=== PATIENT | male | born 1950 | race Caucasian/White ===

== ENCOUNTER 2021-07-11 06:25 | Inpatient (IN) ==
[2021-07-11] MEDS ORDERED: NITROGLYCERIN DRIP 50 MG/250 ML BOTTLE IV ONE (06:41)
[2021-07-11] MEDS ORDERED: HEPARIN/NACL 0.9% 2 UNITS/ML 1,000 UNIT/500 ML BAG IV ONE (06:41)
[2021-07-11] MEDS ORDERED: PHENYLEPHRINE DRIP 20 MG/250 ML PREMIX IV ONE (06:42)
[2021-07-11] MEDS ORDERED: DEXAMETHASONE 4 MG/1 ML VIAL ONE ×2 (07:05→07:12)
[2021-07-11] MEDS ORDERED: HEPARIN 10,000 UNIT/10 ML VIAL ONE (07:05)
[2021-07-11] MEDS ORDERED: ETOMIDATE 40 MG/20 ML VIAL IV ONE (07:05)
[2021-07-11] MEDS ORDERED: SEVOFLURANE 1 UNIT/15 MINUTE INH ONE ×2 (07:05→10:05)
[2021-07-11] MEDS ORDERED: LACTATED RINGERS 1,000 ML IV ONE (07:05)
[2021-07-11] MEDS ORDERED: ROCURONIUM 50 MG/5 ML VIAL IV ONE (07:05)
[2021-07-11] MEDS ORDERED: SODIUM CHLORIDE 0.9% 1,000 ML IV ONE (07:05)
[2021-07-11] MEDS ORDERED: LIDOCAINE 2% 5 ML VIAL ONE (07:05)
[2021-07-11] MEDS ORDERED: ONDANSETRON 4 MG/2 ML VIAL ONE (07:05)
[2021-07-11] MEDS ORDERED: propofoL 200 MG/20 ML VIAL IV ONE (07:05)
[2021-07-11] MEDS ORDERED: fentaNYL 100 MCG/2 ML VIAL ONE (07:05)
[2021-07-11] MEDS ORDERED: ROPIVACAINE 0.5% 30 ML VIAL ONE (07:12)
[2021-07-11] MEDS ORDERED: LACTATED RINGERS 1,000 ML IV SCH (07:30)
[2021-07-11] MEDS ORDERED: HEPARIN 5,000 UNIT/1 ML VIAL ONE (08:04)
[2021-07-11] MEDS ORDERED: LIDOCAINE 1% 50 ML VIAL ONE (08:05)
[2021-07-11] MEDS ORDERED: LIDOCAINE 1% 5 ML VIAL ONE (08:50)
[2021-07-11] MEDS ORDERED: NEOSTIGMINE 10 MG/10 ML VIAL ONE (09:18)
[2021-07-11] MEDS ORDERED: GLYCOPYRROLATE 0.4 MG/2 ML VIAL ONE (09:18)
[2021-07-11] MEDS ORDERED: ONDANSETRON 4 MG/2 ML VIAL IV PRN (10:20)
[2021-07-11] MEDS ORDERED: NALOXONE 0.4 MG/ML VIAL IV PRN (10:20)
[2021-07-11] MEDS ORDERED: oxyCODONE/ACETAMINOPHEN 5-325 MG TABLET PO PRN ×2 (10:20)
[2021-07-11] MEDS ORDERED: PROMETHAZINE 25 MG/1 ML VIAL IM PRN (10:20)
[2021-07-11] MEDS ORDERED: HYDROmorphone 1 MG/1 ML SYRINGE IV PRN ×2 (10:20)
[2021-07-11] MEDS ORDERED: DEXTROSE 10% 250 ML BAG IV PRN (10:20)
[2021-07-11] MEDS ORDERED: GLUCAGON 1 MG VIAL IM PRN (10:20)
[2021-07-11] MEDS ORDERED: NITROPRUSSIDE 100 MG in DEXTROSE 5% 250 ML IV SCH (10:30)
[2021-07-11] MEDS ORDERED: PHENYLEPHRINE DRIP 40 MG/250 ML PREMIX IV SCH (10:30)
[2021-07-11] MEDS: LACTATED RINGERS 1,000 ML IV SCH ×2 (11:07→20:54)
[2021-07-11 11:12] VITALS: BP 133/67
[2021-07-12] MEDS: LACTATED RINGERS 1,000 ML IV SCH (06:07)
[2021-07-12] MEDS ORDERED: ATORVASTATIN 40 MG TABLET PO SCH (09:00)
[2021-07-12] MEDS ORDERED: ASPIRIN EC 81 MG TABLET PO SCH ×2 (09:00)
[2021-07-12] MEDS ORDERED: FENOFIBRATE 145 MG TABLET PO SCH (09:00)
[2021-07-12] MEDS ORDERED: amLODIPine 10 MG TABLET PO SCH (09:00)
[2021-07-12] MEDS ORDERED: hydroCHLOROthiazide 25 MG TABLET PO SCH (09:00)
[2021-07-12] MEDS ORDERED: BISOPROLOL 5 MG TABLET PO SCH (09:00)
[2021-07-12] MEDS ORDERED: CLOPIDOGREL 75 MG TABLET PO SCH ×2 (09:00)
== END 2021-07-12 14:14 | disposition home or self-care (01) | DRG 38 ==
LOC: N.OR 06:25 → N.SDSINP 06:27 → EDSTATUS 10:15 → N.SDSINP 10:20 → N.ICU 11:10
PROVIDERS: ADMIT Surgery; ATTEND Surgery